=== PATIENT | female | born 1985 | race Two or more races ===

== ENCOUNTER 2020-05-19 23:23 | Inpatient (IN) | payer OTHER ==
[~2020-05-19] VITALS: Ht 160 cm; Wt 71.7 kg
[2020-05-19] MEDS ORDERED: PRENATAL TABLE1 EAC1 PO (23:27)
[2020-05-19] MEDS ORDERED: ALLER-TEC10 MG PO (23:28)
[2020-05-19] MEDS ORDERED: FE C PLUS TABL1 EACH PO (23:39)
[2020-05-20] MEDS ORDERED: FOLIC ACID1 MG (09:09)
[2020-05-20] MEDS ORDERED: FOLBIC TABLET1 EACH (09:09)
[2020-05-20] MEDS ORDERED: INTEGRA F CAPS1 EAC1 (09:09)
== END 2020-05-22 12:22 | disposition home or self-care (01) | DRG 768 ==
LOC: LDR 23:23 → SURG-SUITE 23:23
PROVIDERS: ADMIT Obstetrics & Gynecology Maternal & Fetal Medicine; ATTEND Obstetrics & Gynecology Maternal & Fetal Medicine
PROC: 4A1HXFZ Monitoring of Products of Conception, Cardiac Rhythm, External Approach (ICD-10-PCS; 2020-05-19)
PROC: 10E0XZZ Delivery of Products of Conception, External Approach (ICD-10-PCS; principal; 2020-05-20)
PROC: 0DQR0ZZ Repair Anal Sphincter, Open Approach (ICD-10-PCS; 2020-05-20)
PROC: 0W8NXZZ Division of Female Perineum, External Approach (ICD-10-PCS; 2020-05-20)
PROC: 10907ZC Drainage of Amniotic Fluid, Therapeutic from Products of Conception, Via Natural or Artificial Opening (ICD-10-PCS; 2020-05-20)
DX: O70.20 Third degree perineal laceration during delivery, unspecified (principal); Z37.0 Single live birth; Z3A.37 37 weeks gestation of pregnancy; Z20.822 Contact with and (suspected) exposure to COVID-19